=== PATIENT | female | born 1945 | race Caucasian/White ===

== ENCOUNTER 2021-04-06 00:43 | Outpatient (CLI) | payer MEDICARE, BC, SELFPAY ==
--- NOTE | 2021-04-06 | DI.RAD_ITS ---
Exam(s) XR HIP RT COMPLETE AP PELVIS EXAM: XR HIP RT COMPLETE AP PELVIS CLINICAL HISTORY: RT THIGH PAIN, M79.651. TECHNIQUE: 2D digital imaging was performed. COMPARISON: No exams were available for comparison FINDINGS: No evidence of pelvic nor hip fracture. Mild degenerative changes noted in right. Left hip. IMPRESSION: DATA REPOSITORY: RADIATION DOSE DELIVERED:
--- NOTE | 2021-04-06 | DI.RAD_ITS ---
Exam(s) XR LUMBAR SPINE COMPLETE EXAM: XR LUMBAR SPINE COMPLETE CLINICAL HISTORY: PAIN. TECHNIQUE: 2D digital imaging was performed. COMPARISON: No exams were available for comparison FINDINGS: Is no evidence fracture or listhesis nor pars interarticularis defects. Mild scoliosis convex right. This has its epicenter at L2-3 level where there is more significant narrowing on the left side of this disc space than on the right side. At L4-5 there is more prominent narrowing on the right side than the left side of the disc space. The narrowing at L3-4 level is somewhat uniform. L5-S1 contin ues to exhibit normal disc height. There are mild degenerative changes facet joints at L5-S1. Other facet joints above this level exhibit minimal change. Sacroiliac joints appear unremarkable. No os seous lesions IMPRESSION: Multilevel chronic degenerative disc disease as described above. DATA REPOSITORY: RADIATION DOSE DELIVERED:
== END 2021-04-06 01:03 ==
PROVIDERS: PCP Family Medicine; Visit Provider Family Medicine
DX: M79.651 Pain in right thigh (principal); M51.36 Other intervertebral disc degeneration, lumbar region
CPT/HCPCS: 72110; 73502

== ENCOUNTER 2021-04-13 17:43 | Outpatient (REF) | payer MEDICARE, BC, SELFPAY ==
[2021-04-15 15:43] LABS: COVID-19 RT-PCR UVMMC Result Negative (Negative)
== END 2021-04-13 17:44 | disposition home or self-care (01) ==
LOC: NCHCN 17:43
PROVIDERS: PCP Family Medicine; Visit Provider Nurse Practitioner Family
DX: Z20.822 Contact with and (suspected) exposure to COVID-19 (principal)
CPT/HCPCS: U0003

== ENCOUNTER 2022-06-22 15:57 | Outpatient (REF) | payer MEDICARE, SELFPAY ==
[2022-06-22 16:28] LABS: Hemoglobin A1C 10.2 % (<5.7)
[2022-06-22 16:35] LABS: TSH (W/Ref FT4) 2.94 uIU/mL (0.36-3.74); Vitamin B12 355 pg/mL (193-986)
== END 2022-06-22 15:58 | disposition home or self-care (01) ==
LOC: NCHCN 15:57
PROVIDERS: PCP Family Medicine; Visit Provider Family Medicine
DX: G62.9 Polyneuropathy, unspecified (principal)
CPT/HCPCS: 82607; 83036; 84443

== ENCOUNTER 2022-07-08 11:32 | Outpatient (REF) | payer MEDICARE, SELFPAY ==
[2022-07-08 16:41] LABS: ALT 16 U/L (14-59); AST 16 U/L (15-37); Albumin 3.7 g/dL (3.4-5.0); Alkaline Phosphatase 88 U/L (46-116); Anion Gap 9.4 mmol/L (3-11); BUN 23 mg/dL (7-18); Bilirubin, Total 0.3 mg/dL (0.2-1.0); CO2 26.6 mmol/L (21.0-32.0); Calcium 9.4 mg/dL (8.5-10.1); Calculated LDL 109 mg/dL (<100); Chloride 104 mmol/L (98-107); Cholesterol 186 mg/dL (<200); Estimated GFR 58.75 (mL/min/1.73m2); Glucose 166 mg/dL (74-106); HDL Cholesterol 53 mg/dL (40-60); Potassium 4.9 mmol/L (3.5-5.1); Sodium 140 mmol/L (136-145); Total Protein 7.7 g/dL (6.4-8.2); Triglyceride 121 mg/dL (<150)
== END 2022-07-08 11:33 | disposition home or self-care (01) ==
LOC: NCHCN 11:32
PROVIDERS: PCP Family Medicine; Visit Provider Family Medicine
DX: E11.9 Type 2 diabetes mellitus without complications (principal)
CPT/HCPCS: 80053; 80061

== ENCOUNTER → 2023-01-13 01:41 | Outpatient (CLI) | payer MEDICARE, SELFPAY ==
--- NOTE | 2023-01-13 | DI.DEXA_ITS ---
Exam(s) XR DEXA BONE DENSITY W/WO SHARMILA EXAM: XR DEXA BONE DENSITY W/WO SHARMILA CLINICAL HISTORY: SCREENING FOR OSTEOPOROSIS IN POSTMENOPAUSAL WOMAN,Z78.0,OSTEOPENIA TECHNIQUE: Routine DEXA evaluation of the lumbar spine, hip, or forearm. COMPARISON: Prior DEXA scan performed January 2004 FINDINGS: Performed on a [employer] unit. Lateral image: No compression fracture evident. Lumbar Spine total T-score: -1.2 Hip total T-score:-2.4 Independent reading at the level of the femoral neck yields T-score of -2.7 Forearm total T-score: -2.0 IMPRESSION: Bone mineral density measures in the osteoporosis range. Fracture risk is high. Note: Any spine fracture indicates 5x risk for subsequent spine fracture and 2x risk for subsequent h ip fracture. World Health Organization criteria for BMD interpretation classify patients: Normal...... T- Score at or above -1.0 Osteopenic... T- Score between -1.0 and -2.5 Osteoporosis... T-Score at or below -2.5
== END ==
PROVIDERS: PCP Family Medicine; Visit Provider Family Medicine
DX: Z78.0 Asymptomatic menopausal state (principal); Z13.820 Encounter for screening for osteoporosis; M81.0 Age-related osteoporosis without current pathological fracture
CPT/HCPCS: 77080

== ENCOUNTER 2023-06-10 14:46 | Outpatient (REF) | payer MEDICARE, SELFPAY ==
[2023-06-10 15:42] LABS: Anion Gap 5.7 mmol/L (3-11); BUN 28 mg/dL (7-18); CO2 29.3 mmol/L (21.0-32.0); Calcium 9.4 mg/dL (8.5-10.1); Chloride 105 mmol/L (98-107); Estimated GFR 58.39 (mL/min/1.73m2); Glucose 131 mg/dL (74-106); Potassium 4.7 mmol/L (3.5-5.1); Sodium 140 mmol/L (136-145)
[2023-06-10 16:51] LABS: Hemoglobin A1C 6.2 % (<5.7)
== END 2023-06-10 14:47 | disposition home or self-care (01) ==
LOC: NCHCN 14:46
PROVIDERS: PCP Family Medicine; Visit Provider Family Medicine
DX: E11.9 Type 2 diabetes mellitus without complications (principal)
CPT/HCPCS: 80048; 83036

== ENCOUNTER 2024-07-17 16:20 | Outpatient (REF) | payer MEDICARE, SELFPAY ==
[2024-07-17 20:03] LABS: Abs Immature Grans 0.04 10^3/uL (0.0-0.06); Absolute Eosinophil Count 0.38 10^3/uL (0.0-0.7); Basophils % 0.7 %; Eosinophils % 3.1 %; HCT 35.2 % (36.0-46.0); Immature Grans % 0.3 %; Lymphocytes % 21.8 %; MCH 28.4 pg (27.0-33.0); MCHC 31.3 % (32.0-36.0); MCV 91 fL (80-95); MPV 8.6 fL (8.0-11.0); Monocytes % 6.6 %; Neutrophils % 67.5 %; Platelet Count 338 10^3/uL (130-400); RBC 3.88 10^6/uL (3.93-5.22); RDW 12.7 % (11.7-14.6); RDW-SD 41.8 fL; WBC 12.18 10^3/uL (4.4-10.8)
[2024-07-17 20:04] LABS: Absolute Basophil Count 0.09 10^3/uL (0.0-0.2); Absolute Lymphocyte Count 2.66 10^3/uL (1.2-3.4); Absolute Neutrophil Count 8.22 10^3/uL (1.2-6.7)
[2024-07-17 20:24] LABS: Anion Gap 7.3 mmol/L (3-11); BUN 20 mg/dL (7-18); CO2 28.7 mmol/L (21.0-32.0); CREATININE 1.1 mg/dL (0.55-1.02); Calcium 9.2 mg/dL (8.5-10.1); Calculated LDL 166 mg/dL (<100); Chloride 107 mmol/L (98-107); Cholesterol 262 mg/dL (<200); Estimated GFR 51.75 (mL/min/1.73m2); Glucose 102 mg/dL (74-106); HDL Cholesterol 53 mg/dL (>or=50); Potassium 4.9 mmol/L (3.5-5.1); Sodium 143 mmol/L (136-145); TSH 2.59 uIU/mL (0.36-3.74); Triglyceride 218 mg/dL (<150)
[2024-07-17 20:26] LABS: COMMENT (LAB VIEW ONLY) 104.48 mg/dL
[2024-07-17 21:19] LABS: Hemoglobin A1C 6.6 % (<5.7)
== END 2024-07-17 16:21 | disposition home or self-care (01) ==
LOC: NCHCN 16:20
PROVIDERS: PCP Family Medicine; Visit Provider Family Medicine
DX: E11.9 Type 2 diabetes mellitus without complications (principal)
CPT/HCPCS: 80048; 80061; 82043; 82570; 83036; 84443; 85025

== ENCOUNTER 2024-07-24 00:51 | Outpatient (CLI) | payer MEDICARE, SELFPAY ==
--- NOTE | 2024-07-24 | DI.RAD_ITS ---
Exam(s) XR SHOULDER LT COMPLETE 2+V EXAM: XR SHOULDER LT COMPLETE 2+V CLINICAL HISTORY: LT SHOULDER PAIN,M25.512,REDUCED SHOULDER ABDUCTION AND FLEXION,? ROTATOR. TECHNIQUE: 2D digital imaging was performed. Five views. COMPARISON: No exams were available for comparison FINDINGS: BONES: No acute fracture is present. No bony destructive lesion is seen. Mild spurring at the greate r tuberosity. JOINTS: No dislocation present. There is mild spurring at the AC joint and glenoid. Glenohumeral joan int space is maintained. SOFT TISSUE: Normal. IMPRESSION: Mild degenerative changes. DATA REPOSITORY: RADIATION DOSE DELIVERED:
== END 2024-07-24 01:11 ==
LOC: DI 00:51
PROVIDERS: PCP Family Medicine; Visit Provider Family Medicine
DX: M25.512 Pain in left shoulder (principal)
CPT/HCPCS: 73030

== ENCOUNTER 2025-02-21 15:17 | Outpatient (REF) | payer MEDICARE, SELFPAY ==
[2025-02-21 16:24] LABS: Anion Gap 7.0 mmol/L (3-11); BUN 35 mg/dL (7-18); CO2 28.0 mmol/L (21.0-32.0); Calcium 9.3 mg/dL (8.5-10.1); Chloride 105 mmol/L (98-107); Estimated GFR 46.33 (mL/min/1.73m2); Glucose 86 mg/dL (74-106); Potassium 5.6 mmol/L (3.5-5.1); Sodium 140 mmol/L (136-145)
[2025-02-21 16:54] LABS: Hemoglobin A1C 6.7 % (<5.7)
== END 2025-02-21 15:18 | disposition home or self-care (01) ==
LOC: NCHCN 15:17
PROVIDERS: PCP Family Medicine; Visit Provider Family Medicine
DX: E11.9 Type 2 diabetes mellitus without complications (principal)
CPT/HCPCS: 80048; 83036